=== PATIENT | female | born 1970 | race Caucasian/White ===

== ENCOUNTER 2022-11-10 10:43 | Emergency (ER) | payer OTHER ==
[2022-11-10] MEDS ORDERED: KETOROLAC TROMETHAMINE 30 MG/1 ML VIAL IM ONE (12:05)
[2022-11-10] MEDS ORDERED: ACETAMINOPHEN 500 MG TABLET (FP) PO ONE (12:06)
[2022-11-10 12:20] VITALS: RESP 20; BMI 28.6
[2022-11-10 15:04] VITALS: BP 100/60; PULSE 115; TEMP 102.3
== END 2022-11-10 15:36 | disposition home or self-care (01) ==
LOC: JER 10:43
PROC: 3E0233Z Introduction of Anti-inflammatory into Muscle, Percutaneous Approach (ICD-10-PCS; principal; 2022-11-10)
DX: J09.X2 Influenza due to identified novel influenza A virus with other respiratory manifestations (principal); R50.9 Fever, unspecified; M79.10 Myalgia, unspecified site
CPT/HCPCS: 0241U-QW; 71046-TC-FY; 99284-25

== ENCOUNTER 2023-09-10 12:43 | Emergency (ER) | payer OTHER ==
[2023-09-10] MEDS ORDERED: ACETAMINOPHEN 1000 MG/100 ML BAG IVPB ONE (14:43)
[2023-09-10 15:01] VITALS: BMI 30.2
[2023-09-10] MEDS ORDERED: ACETAMINOPHEN INJECTION 100 ML IVPB ONE (15:07)
[2023-09-10] MEDS ORDERED: IBUPROFEN 400 MG TABLET (FP) PO ONE ×2 (15:10→15:23)
[2023-09-10 15:18] VITALS: BP 137/72; PULSE 79; RESP 18; TEMP 98.5
[2023-09-10] MEDS ORDERED: LIDOCAINE 4% PATCH TP ONE ×2 (15:23→15:24)
[2023-09-10] MEDS: LIDOCAINE 5% TOPICAL PATCH TP ONE ×2 (15:24→15:25)
[2023-09-10] MEDS ORDERED: LIDOCAINE PATCH REMOVAL MC SCH ×2 (22:00)
== END 2023-09-10 16:06 | disposition home or self-care (01) ==
LOC: JER 12:43
PROC: 3E033NZ Introduction of Analgesics, Hypnotics, Sedatives into Peripheral Vein, Percutaneous Approach (ICD-10-PCS; principal; 2023-09-10)
DX: M25.562 Pain in left knee (principal); R22.42 Localized swelling, mass and lump, left lower limb; M25.561 Pain in right knee; M17.12 Unilateral primary osteoarthritis, left knee; R53.1 Weakness; G89.29 Other chronic pain
CPT/HCPCS: 73562-TC-LT-FY; 99284-25